=== PATIENT | male | born 1985 | race Caucasian/White ===

== ENCOUNTER 2023-10-19 18:19 | Emergency (ER) | payer OTHER, SELFPAY ==
[2023-10-19 18:31] VITALS: BP 145/103
[2023-10-19 18:49] LABS: % Basophils 0.8 % (0-2); % Eosinophils 1.9 % (0-6); % Immature Granulocytes 0.3 % (0-0.5); % Lymphocytes 28.9 % (20.5-51.1); % Monocytes 8.3 % (1.7-9.3); % Neutrophils 59.8 % (42.2-75.2); Absolute Basophils 0.1 10^3/uL (0-0.2); Absolute Eosinophils 0.1 10^3/uL (0-0.7); Absolute Lymphocytes 2.1 10^3/uL (1.2-3.4); Absolute Monocytes 0.6 10^3/uL (0.1-0.6); Absolute Neutrophils 4.4 10^3/uL (1.4-6.5); Hematocrit 44.2 % (39.0-52.0); Hemoglobin 15.5 g/dL (13.0-18.0); Mean Corp Hgb Conc. 35.1 g/dL (33.0-37.0); Mean Corpuscular Hgb 29.3 pg (27.0-31.0); Mean Corpuscular Volume 83.6 fL (80.0-94.0); Mean Platelet Volume 10.4 fL (7.4-10.4); Nucleated Red Blood Cells % 0 % (-); Platelet Count 347 10^3/uL (130-400); Red Blood Cell Count 5.29 10^6/uL (4.70-6.10); Red Cell Dist. Width 12.3 % (11.5-14.5); White Blood Cell Count 7.3 10^3/uL (4.8-10.8)
[2023-10-19 19:13] LABS: Troponin I < 0.012 ng/ml
[2023-10-19 19:15] LABS: ALT (SGPT) 30 U/L (0-50); AST (SGOT) 24 U/L (17-59); Albumin 4.8 g/dl (3.5-5.0); Alkaline Phosphatase 54 U/L (38-126); Blood Urea Nitrogen 19 mg/dl (9-20); Calcium 9.9 mg/dl (8.4-10.2); Carbon Dioxide 25 mmol/L (22-30); Chloride 102 mmol/L (98-107); Glucose 99 mg/dl (70-99); Potassium 4.3 mmol/L (3.5-5.1); Sodium 139 mmol/L (135-145); Total Bilirubin 0.5 mg/dl (0.2-1.3); Total Protein 7.4 g/dl (6.3-8.2); eGFR > 60.00
[2023-10-19 19:44] VITALS: BP 145/91
[2023-10-19 21:23] VITALS: BP 126/81
--- NOTE | 2023-10-19 22:08 | ED.GENMED ---
History of Present Illness
<TORITO Fine (Lenka) - Last Filed: 10/20/23 00:10>
General
Chief Complaint: Anxiety
Source: patient
Exam Limitations: none
Time Seen by Provider: 10/19/23 22:07
Nursing documentation reviewed up to this point in time: agreed with
History of Present Illness
History of Present Illness:
Pt is a 38 yo male with PMHx panic disorder who presents to the ED with chest tightness since 1629. This afternoon pt was sitting on the cough resting when he suddenly developed diffuse chest tightness and B/L 'heavy arms'. He took a hydroxyzine at
time of onset with no relief. He took another 1 hour later (at 1730), again with no relief. The tightness increased and decreased in intensity over the past 5 hours, with complete resolution by 2114. He now reports no symptoms. During the episode,
he denies dyspnea, XIE, N/V, diaphoresis, abdominal pain, back or flank pain, numbness or tingling in the extremities, extremity swelling.
He notes he has had similar episodes in the past, with first onset 10/2022, for which he went to [facility], and was prescribed hydroxyzine. He has not had an episode 'this bad' since last year.
He last had a mild episode 1d ago, which was resolved with hydroxyzine within 30 minutes, with the exact same presenting symptoms. He states they have been worse over the past 3 weeks, requiring hydroxyzine 1-2x/week.
He denies any cardiac conditions, does not follow with health care technician. Pt states when he is not having a chest tightness attack, his blood pressure is 120s/80s.
Recent lifestyle changes within the past 3 weeks: work stress, attempting a carnivore diet, resistance band training for his arms/chest.
Past History
<TORITO Fine (Lenka) - Last Filed: 10/20/23 00:10>
Past History
ED Past Medical History: Psychiatric (anxiety)
ED Past Surgical History: None
Phy Exam
<TORITO Fine (Lenka) - Last Filed: 10/20/23 00:10>
General Physical Exam
General Presentation: well appearing and no apparent distress
General age: appears stated age
General Skin: warm and dry
General Habitus: normal
General Mental: alert
General Hydration: appears well hydrated
Cardiovascular Exam
Cardiovascular Exam: regular rate/rhythm, no edema, no gallop, no murmur, normal peripheral pulses and other (chest pressure NOT reproducible with palpation)
Pulmonary Exam
Pulmonary Exam: lungs clear, no respiratory distress, no rales, no rhonchi, no wheezing and no cough
Gastrointestinal Exam
Gastrointestinal Exam: non tender, soft and non distended
Neurological Exam
Neurological Exam: alert, oriented x3, no sensory deficits and speech normal
Psychiatric Exam
Psychiatric Exam: normal mood/affect
Scores
<Jessika Hernandez DO - Last Filed: 10/20/23 00:23>
Heart Score for Chest Pain Patients
STEMI patient?: No
History: Slightly or Non-Suspicious
ECG: Normal
Age: </= 45 years
Risk Factors: No Risk Factors
Troponin: </= Normal Limit
Heart Score for Chest Pain Patients: 0
Heart Score Risk: 2.5% MACE over next 6 weeks
Course
<TORITO Fine (Lenka) - Last Filed: 10/20/23 00:10>
Orders/Labs/Results
Orders:
Orders
10/19/23 18:38
Electrocardiogram (*1) Urgent
Reason for Study: Chest Pain
EKG- Treatment ONCE
10/19/23 18:42
Alcohol Urgent
CMP [Comprehensive Metabolic Panel] Urgent
Complete Blood Count/With Diff Urgent
Troponin I Urgent
10/19/23 22:30
Add On- LAB Urgent
Tests Added?: TSH w reflex to free T-4; ETOH
10/19/23 22:58
US Abdomen Complete/Upper Urgent
Comment:
Reason For Exam: intermittent epigastric to lower CP x 1 month
10/19/23 23:00
TSH Reflex To Free T4 Urgent
Comment: ADD ON
Troponin I Urgent
10/19/23 18:42
10/19/23 18:42
Vital Signs
Initial and Last Documented VS:
Initial Vital Signs
Temp Pulse Resp BP Pulse Ox
98.6 F 76 18 145/103 99
10/19/23 18:31 10/19/23 18:31 10/19/23 18:31 10/19/23 18:31 10/19/23 18:31
Last Documented Vital Signs
Temp Pulse Resp BP Pulse Ox
98.6 F 89 18 144/87 99
10/19/23 18:31 10/19/23 23:00 10/19/23 23:00 10/19/23 23:00 10/19/23 23:00
<Jessika Hernandez, DO - Last Filed: 10/20/23 00:23>
Orders/Labs/Results
Orders:
Orders
10/19/23 18:38
Electrocardiogram (*1) Urgent
Reason for Study: Chest Pain
EKG- Treatment ONCE
10/19/23 18:42
Alcohol Urgent
CMP [Comprehensive Metabolic Panel] Urgent
Complete Blood Count/With Diff Urgent
Troponin I Urgent
10/19/23 22:30
Add On- LAB Urgent
Tests Added?: TSH w reflex to free T-4; ETOH
10/19/23 22:58
US Abdomen Complete/Upper Urgent
Comment:
Reason For Exam: intermittent epigastric to lower CP x 1 month
10/19/23 23:00
TSH Reflex To Free T4 Urgent
Comment: ADD ON
Troponin I Urgent
10/19/23 18:42
10/19/23 18:42
Vital Signs
Initial and Last Documented VS:
Initial Vital Signs
Temp Pulse Resp BP Pulse Ox
98.6 F 76 18 145/103 99
10/19/23 18:31 10/19/23 18:31 10/19/23 18:31 10/19/23 18:31 10/19/23 18:31
Last Documented Vital Signs
Temp Pulse Resp BP Pulse Ox
98.6 F 89 18 144/87 99
10/19/23 18:31 10/19/23 23:00 10/19/23 23:00 10/19/23 23:00 10/19/23 23:00
<TORITO Fine (Lenka) - Last Filed: 10/20/23 00:10>
MDM/Problems Addressed
Differential Diagnosis Includes:
DDx: panic attack vs ACS vs GERD
Pt presenting with chest tightness and heacy B/L arms x 5 hours with similar symptoms as prior 'panic attacks', but this time without relief with hydroxyzine.
Physical exam benign, no audible murmurs, normal pulses, no lower extremity edema, no adventitious lung sounds.
Due to concern of ACS, will obtain EKG, run CBC/CMP, troponin, TSH w/ reflex to T4.
EKG - NSR at 71bpm, normal axis (my read)
Initial troponin - <0.012
Repeat troponin - pending
Chronic conditions affecting care: Psychiatric illness (anxiety)
<TORITO Fine (Lenka) - Last Filed: 10/20/23 00:10>
*Critical Care Note
Total Time (30-74mins, 75-104mins- exclusive of procedures): Not Applicable
<Jessika Hernandez DO - Last Filed: 10/20/23 00:23>
*Pulse Oximetry
Patient hypoxic: no
*EKG
Interpreted by ED Provider?: Yes
Interpretation: normal
Comparison EKG: no comparison EKG present
Rate: normal
Rhythm: sinus
[place]: normal axis
Interval: normal interval
QRS Pattern: normal QRS
Ischemia: no ischemia
*Collection Systems Technician Interpretation
Rate: normal
Interpretation: normal
Rhythm: sinus
<TORITO Fine (Lenka) - Last Filed: 10/20/23 00:10>
Update Note
Update Note:
Repeat troponin: <0.012
Abdominal U/S (10/19/23, 2250)
Indication:intermittent epigastric to lower CP x 1 month.
Comparison: None.
Findings:
Liver is unremarkable in echotexture without evidence of focal lesion. The portal and hepatic vessels appear grossly patent.
No intra- or extrahepatic biliary ductal dilatation with the visualized portion of the common duct measuring 5 mm. No gallstones, gallbladder wall thickening, pericholecystic fluid or sonographic Hudson's sign.
Nonvisualization of the pancreas due to overlying bowel gas. Spleen measures 11.0 cm in length, which is not enlarged. No free fluid in the upper abdomen.
Right kidney measures 11.0 cm, and the left kidney measures 11.8 cm in length. No hydronephrosis.
Visualized portions of the abdominal aorta and inferior vena cava appear unremarkable.
IMPRESSION:
1. Unremarkable limited abdominal ultrasound, as detailed above.
Pt informed about negative troponin and abdominal U/S findings. He is agreeable to starting on a 1-month trial of omeprazole, with referral to a health care technician.
He is aware that he can take one 25mg hydroxyzine or two 25mg for a total of 50mg for the next time his chest symptoms onset.
ED Attending Note
<TORITO Fine (Lenka) - Last Filed: 10/20/23 00:10>
-
Portions of this chart may have been created with voice recognition software.� Occasional wrong word or��sound alike� substitutions may have occurred due to the inherent limitations of voice recognition software.
<Jessika Hernandez DO - Last Filed: 10/20/23 00:23>
ED Attending Note
Patient seen and examined by attending physician: Yes
I performed the substantive portion of visit, reviewed & personally made and approve the management plan that is documented in note by myself or PATRICA.: Yes
ED Attending Note:
This is a 38-year-old gentleman who has longstanding history of anxiety, admits to chronic ongoing generally work related stress. Admits that his anxiety and stress are generally well-controlled with as needed doses of hydroxyzine. He has long
elected to forego daily maintenance medications and at this point has not required counseling or any other interventions.
He presents with complaints of increase in his anxiety, panic issues that began perhaps a month ago, much worse over the past week. He states he has episodes generally when he is sitting quietly when he begins to feel anxious accompanied with chest
pressure, bilateral arm heaviness and a sensation of feeling that he is in a fog. The symptoms generally promptly resolve with a dose of hydroxyzine until tonight when he had no relief after 2 doses. He admits to brief palpitations with initial
onset at approximately 4:30 PM tonight but no dizziness nor lightheadedness, no nausea nor vomiting, no diaphoresis, no shortness of breath or cough. No back pain nor neck pain.
Episodes occurred on a frequent basis October 2022 were patient was evaluated at [facility] ED on 3 separate visits within a week span and reports unremarkable cardiac as well as pulmonary evaluations on each visit.
He also notes history of GERD and admits to occasional heartburn but states current symptoms feel different from his usual heartburn. He admits to occasional burping.
He believes he may have issues with his gallbladder with occasional right upper quadrant discomfort but no abdominal discomfort with chest pain episode tonight nor similar but brief chest pain episode yesterday.
Over the past month he has been attempting to diet, changed his diet to a carnivore diet and has been exercising on a regular basis. He admits that 'I feel the best when I exercise' with no chest discomfort nor shortness of breath nor palpitations
during exercise.
No recent travel, no leg pain or swelling. No risk factors for VTE.
Grandfather with history of CAD but no other close family members with history of CAD.
Patient admits to moderate social alcohol use but has quit alcohol 40 days ago. Denies drug use.
GENERAL: Alert , in no apparent distress
EYE: anicteric
NECK: Supple, nontender, no meningismus, no significant adenopathy.
ENT: oral mucosa is moist. No rhinorrhea.
CARDIAC: Regular rate and rhythm. no murmur.
LUNGS: Clear breath sounds bilaterally, no acute respiratory distress, no wheezes/rales/rhonchi
ABDOMEN: Soft, nondistended, without focal tenderness, no r/g, no cvat. normoactive BS.
NEUROLOGICAL: Alert and oriented x3, no focal neuro deficits. Gait is d[place] and steady.
SKIN: Warm and dry, normal color, skin intact. No rash.
MUSCULOSKELETAL: No C/C/E. peripheral pulses are full and equal b/l. No palpable tenderness.
PSYCH: Normal and appropriate interaction.
Concern for ACS, GERD, biliary colic.
No history nor risk factors for VTE. Symptoms are not consistent with aortic dissection.
EKG is unremarkable. Monitor shows normal sinus rhythm without ectopy.
Labs thus far unremarkable including negative troponin. Will plan to repeat troponin, will add TSH and due to concern for potential biliary colic will check abdominal ultrasound.
10/20/2023 0018 AM
Abdominal ultrasound is unremarkable.
Repeat troponin is negative. TSH is normal.
Patient could certainly have an element of acid reflux as cause for symptoms which then aggravates his anxiety component. We did discuss a daily medication such as an SSRI which he declines. He plans to continue hydroxyzine as needed.
Would recommend a trial of 1 month course of a daily PPI and prescription will be provided.
It is reassuring that patient has been asymptomatic with exercise but with complaints of chest pain with radiation to arms etc. will refer to cardiology for follow-up.
Recommend prompt follow-up with PCP as well. I have also encouraged him to initiate outpatient counseling/stress management, can discuss further with PCP versus call the one 800-number on his insurance card.
Return precautions discussed.
Discharge Plan
Departure
Patient Disposition: Home (Routine Discharge)
Date of Disposition: 10/20/23
Time of Disposition: 00:20
Patient with high blood pressure during this ER visit?: No
Condition: Good
Discharge Problem:
Nonspecific chest pain, Generalized anxiety disorder
Instructions: Generalized Anxiety Disorder (DC), Acid reflux and GERD in adults, Chest Pain CBC Follow Up
Prescriptions:
New
omeprazole 40 mg capsule,delayed release(DR/EC)
40 mg PO DAILY Qty: 30 0RF
Referrals:
Rakesh Ahuja MD, Resident [Family Provider] - Call in 1-3 days for appt
Interventions
Interventions:
*Risk Screen - Suicide Last Done: 10/19/23 22:44
*General Assessment Last Done: 10/19/23 22:44
*Neglect/Abuse Screening Last Done: 10/19/23 22:44
ED- Fall Risk Assessment Last Done: 10/19/23 23:25
*ED COVID-19 Vaccine History Last Done: 10/19/23 22:44
ED-Psychological Assessment Last Done: 10/19/23 23:25
Discharge Date and Time
Print Language: SLOVAK
[2023-10-19 23:00] VITALS: BP 144/87
[2023-10-19 23:21] VITALS: BMI 31.7
[2023-10-19 23:21] LABS: Alcohol None Detected
[2023-10-19 23:30] LABS: Troponin I < 0.012 ng/ml
[2023-10-19 23:57] LABS: TSH Reflex To Free T4 2.45 uIU/ml (0.47-4.68)
[2023-10-20] VITALS: BP 135/85
[2023-10-20] MEDS: PROTONIX 40 MG PO (00:26)
== END 2023-10-20 00:34 | disposition home or self-care (01) ==
LOC: EMR 18:19
PROVIDERS: Emergency Medicine; EMERGENCY PHYSICIAN Emergency Medicine; FAMILY PHYSICIAN Student in an Organized Health Care Education/Training Program
DX: F41.1 Generalized anxiety disorder (principal); R07.89 Other chest pain
CPT/HCPCS: 99285; 76700; 80053; 82077; 84443; 84484; 85025; 93005